=== PATIENT | female | born 1980 | race Caucasian/White ===

== ENCOUNTER 2016-08-24 04:14 | Observation (INO) | payer SELFPAY ==
[~2016-08-24] VITALS: Ht 172.7 cm; Wt 78.4 kg
[2016-08-24 04:34] LABS: DAU SCREEN DISCLAIMER
[2016-08-24] MEDS ORDERED: LORazepam 2 MG/ML, 1ML ONE (04:54)
[2016-08-24] MEDS ORDERED: LORazepam 2 MG/ML, 1ML IM ONE (05:00)
[2016-08-24 05:19] LABS: HEMOGLOBIN 14.4 g/dL (11.7-16.4)
[2016-08-24 05:35] LABS: BLOOD UREA NITROGEN 14 mg/dL (7-18)
[2016-08-24 05:43] LABS: ACETAMINOPHEN < 2 mcg/mL (10-30)
[2016-08-24] MEDS ORDERED: ZIPRASIDONE 20 MG INJ IM ONE ×2 (06:30→06:31)
[2016-08-24] MEDS ORDERED: LORazepam 2 MG/ML, 1ML IM PRN (14:00)
[2016-08-24] MEDS ORDERED: BISACODYL 10 MG SUPP PR PRN (14:00)
[2016-08-24] MEDS ORDERED: POLYETHYLENE GLYCOL 17 GM PACKET PO PRN (14:00)
[2016-08-24] MEDS ORDERED: OLANZAPINE 10 MG INJ IM PRN (14:00)
[2016-08-24] MEDS ORDERED: ACETAMINOPHEN 325 MG TABLET PO PRN (14:00)
[2016-08-24] MEDS ORDERED: ONDANSETRON ODT 4 MG PO PRN (14:00)
[2016-08-24] MEDS ORDERED: OLANZAPINE 10 MG TABLET PO PRN (14:00)
[2016-08-24] MEDS ORDERED: LORazepam 1MG TABLET ONE (17:48)
[2016-08-24] MEDS: LORazepam 1MG TABLET PO PRN (17:49)
[2016-08-24] MEDS: POTASSIUM CHLORIDE 20 MEQ TAB.ER.PRT PO SCH (19:47)
[2016-08-24] MEDS: ENOXAPARIN 40 MG/0.4 ML SQ SCH (19:47)
[2016-08-24] MEDS ORDERED: QUETIAPINE 100MG TABLET PO SCH (21:00)
[2016-08-24 21:29] VITALS: BP 118/79
[2016-08-25 05:00] LABS: HEMOGLOBIN 12.4 g/dL (11.7-16.4)
[2016-08-25 05:11] LABS: ASPARTATE AMINO TRANSFERASE 32 U/L (15-37); BLOOD UREA NITROGEN 14 mg/dL (7-18)
[2016-08-25 07:43] VITALS: BP 105/71
[2016-08-25] MEDS: POTASSIUM CHLORIDE 20 MEQ TAB.ER.PRT PO SCH ×2 (08:00→09:22)
[2016-08-25] MEDS ORDERED: FOLIC ACID 1 MG TABLET PO SCH (09:00)
[2016-08-25] MEDS ORDERED: MULTIVITAMIN 1 TABLET PO SCH (09:00)
[2016-08-25] MEDS ORDERED: THIAMINE 100MG TABLET PO SCH (09:00)
[2016-08-25 10:03] VITALS: BP 121/81
[2016-08-25] MEDS: LORazepam 1MG TABLET PO PRN (11:36)
[2016-08-25] MEDS: ENOXAPARIN 40 MG/0.4 ML SQ SCH (14:00)
[2016-08-25] MEDS ORDERED: THIA100T6 PO (15:18)
[2016-08-25] MEDS ORDERED: FOLI-17 PO (15:18)
[2016-08-25] MEDS ORDERED: MULT1TAB60 PO (15:18)
== END 2016-08-25 16:38 | disposition home or self-care (01) ==
LOC: ED 05:24 → EDIP 12:04 → 3E 21:08
PROVIDERS: ADMIT Hospitalist; ATTEND Internal Medicine
DX: R45.851 Suicidal ideations (principal); E87.6 Hypokalemia; F10.220 Alcohol dependence with intoxication, uncomplicated; E87.2 Acidosis; D72.819 Decreased white blood cell count, unspecified; D69.6 Thrombocytopenia, unspecified; K76.6 Portal hypertension; F31.9 Bipolar disorder, unspecified; F41.1 Generalized anxiety disorder; K70.30 Alcoholic cirrhosis of liver without ascites; N83.209 Unspecified ovarian cyst, unspecified side; Z81.8 Family history of other mental and behavioral disorders
CPT/HCPCS: 36415; 80048; 80053; 80307; 80329; 82040; 83735; 84100; 84703; 85025; 96372; 99285; G0378; J1650; J2060; J3486; G0480